=== PATIENT | female | born 1970 | race Caucasian/White ===

== ENCOUNTER 2016-07-15 08:46 | Day surgery (SDC) | payer OTHER ==
[2016-07-15] VITALS (13 sets, daily range): BP systolic 95–114; BP diastolic 47–72; PULSE 47–69; RESP 10–19; O2SAT 93–100
[~2016-07-15] VITALS: Ht 167.6 cm; Wt 75.0 kg
[~2016-07-15 08:46] MED LIST: BUPR100T7 PO; CeFAZolin Inj 2 GM in IV Premix 1 EACH IV ONE; ESTR0.5T PO; QUET50TA PO
[2016-07-15] MEDS ORDERED: HYDROmorphone 2 mg/mL Inj ONE (08:47)
[2016-07-15] MEDS ORDERED: Propofol 10,000 mCg/mL 20 mL Inj ONE (08:47)
[2016-07-15] MEDS ORDERED: fentaNYL-PF 50 mCg/mL 2 mL Inj ONE (08:47)
[2016-07-15] MEDS ORDERED: Ondansetron 2 mg/mL 2 mL Inj ONE (08:47)
[2016-07-15] MEDS ORDERED: Dexamethasone 4 mg/mL Inj ONE (08:47)
[2016-07-15] MEDS: Lactated Ringer's 1,000 ML IV SCH ×2 (08:56→09:30)
[2016-07-15] MEDS ORDERED: CeFAZolin Inj 2 gm / 50mL D5W IV ONE (09:02)
--- NOTE | 2016-07-15 09:02 | PCM.HPANE ---
Patient Data Date of Service: Jul 15, 2016 Surgeon Admitting Provider: Attending Provider:Gian Tran DO Primary Care Physician:Kathy Other Provider:Get Martinez Anesthesia Reason for Visit Left Acl Tear Ht/WT & BMI Height (Feet): 5 Height (Inches): 6 Weight (Kilograms): 75.9 Body Mass Index 26.00 Allergies Coded Allergies: Sulfa (Sulfonamide Antibiotics) (Unverified Allergy, Unknown, UNKNOWN, ) Past Anesthesia History Anesthesia History: Positive for:: Anesthesia Reactions (post op nausea vomiting, used scop patch in past ), Denies:: Abnormal Airway, Difficult Intubation, Fam Anesthesia Reaction, Malignant Hyperthermia Diabetes History Hx Diabetes?: No MRSA MRSA: No Medications Hypertension Medication: No Home Meds Incl Beta Dilan: No Reported Medications Bupropion ER (Wellbutrin SR)100 Mg Tablet.er100 Mg PO DAILY Ref 0 07/10/16 Quetiapine Fumarate (Seroquel)50 Mg [id number] Mg PO BID Ref 0 07/10/16 Estradiol 0.5 Mg Tablet0.5 Mg PO DAILY 07/10/16 Discontinued Reported Medications Quetiapine Fumarate (Seroquel)100 Mg [id number] Mg PO DAILY 30 Days Ref 0 10/04/13 Bupropion (Wellbutrin)100 Mg Icqeuw71 Mg PO BID 30 Days Ref 0 10/04/13 History History of ENT Problems?: Yes HEENT History: Positive for:: Sinus Problem (hx sinus surgery, hx sinus infections) Denies:: Abnormal Airway Cataracts Difficult Intubation Dysphagia Glaucoma Hearing Problem TMJ Denture Type: Partial- Upper Partial- Lower Hx of Heart Problems?: Yes Cardiovascular History: Denies:: AICD Abdominal Aortic Aneurism Atrial Fibrillation Cardiac Surgery Chest Pain Congestive Heart Failure Heart Murmur Hypertension Irregular Heartbeat Pacemaker Hx of Respiratory Problem?: No Respiratory History: Denies:: Asthma COPD Emphysema Oxygen Administration Pneumonia Tuberculosis Use of C-PAP Machine Hx Neurologic Problems?: No Neurological History: Denies:: CVA Headaches (only when has sinus infections) Multiple Sclerosis Parkinson's Disease Seizures Hx of GI Problems?: No Gastrointestinal History: Denies:: Gall Bladder Disease Gastroesphageal Reflux Hepatitis Liver Disease Hx of Problems?: No Genitourinary History: Denies:: Kidney Stones Urinary Tract Infection Female Hx: Positive for:: Endometriosis Denies:: Currently (hysterectomy) Problems with Breasts? Skin History: Denies:: History Skin Disorders? Pressure Ulcers Hx Musculoskeletal Problems?: Yes Musculoskeletal History: Positive for:: Musculoskeletal Trauma (left knee acl current admission problem) Osteoarthritis Denies:: Back Injury Fibromyalgia Joint Replacement Rheumatoid Arthritis Systemic Lupus Hx of Psycho/Social Problems?: Yes Psycho Social History: Positive for:: Anxiety (PTSD) Bipolar Disorder Hx Depression Hx Surgeries?: Yes (c section, rt elbow tendon repair, sinus, crystal/bs) Hx Any Other Health Problems?: Yes Other History: Denies:: Cancer Endocrine Disease Hospitalization Thyroid Disease History Blood Transfusions: Positive for:: Accept Blood Products? Denies:: Blood Transfusions Hx Diabetes: No Hx Alcohol Use: NoHx Substance Use: No Smoking Status: Smoker Current Status UNK Have You Smoked inLast 12 mo: No Stop/Bang Treated for Sleep Apnea?: No Do You Have a CPAP Machine?: No S-Snoring: Do You Snore Loudly: No T-Tired: feel tired, fatigued: No O-Obsered: Observed not breath: No P-Blood Pressure: treated: No B- Body Mass Index > 35 kg/m2: No A- Age over 50: No N- Neck Large Circumference: No G- Gender Male: No RHONA Total Score: 0 RHONA Risk Assessment: Low Risk, <3 Yes Risk Assessment Category Category 1A: Patient has history of documented sleep apnea, and HAS NOT received any narcotic, sedative or anesthesia administration during this stay. Category 1B: Patient has history of documented sleep apnea, and HAS received any narcotic , sedative or anesthesia administration during this stay Category 2: Patient has SUSPECTED Obstructive Sleep Apnea, and HAS received any narcotic , sedative or anesthesia administration during this stay. Category 3: Patient has SUSPECTED Obstructive Sleep Apnea and HAS NOT received narcotic, sedative or anesthesia administration during this stay. Category 4: Outpatient in Procedural Areas with known sleep apnea or who screen positive for High Risk via the STOP/BANG questionnaire. Exam Exam General Appearance: Alert, Oriented X3, Cooperative, No Acute Distress HEENT/AIRWAY: MP 2 Lungs: Clear to Auscultation, Normal Air Movement Heart: Exam Unremarkable, Normal S1, Normal S2, No Murmurs/Rubs/Gallops Meds/Labs/Diagnostics Admission Meds Current Medications Lactated Ringer's (Lr) 1,000 ml @ 120 mls/hr Q8H20M IV Last administered on t 08:56; Start 07/15/16 at 05:00; Stop 07/15/16 at 13:19 Plan Impression Patient chart reviewed, patient interviewed and anesthestic plan with risks, benefits, and alternatives discussed, and informed consent obtained. NPO Status: 07/14/16 ASA Physical Status: ASA2 Mod Systemic Disease Anesthetic Plan: GA (Patient acknowleges Hx PONV, declines PNB) Bene/Risks/Altern/Consents: Yes HP Complete Prior to Induction: Yes Gonzalez Velasco DO Jul 15, 2016 09:02
[2016-07-15] MEDS ORDERED: Lidocaine 1%-Epi 1:100,000 20 mL Inj INFILTRATE ONE (11:08)
[2016-07-15] MEDS ORDERED: Ropivacaine-PF 0.5% 30 mL Inj INFILTRATE ONE (11:25)
[2016-07-15] MEDS ORDERED: Lactated Ringer's 500 ML IV PRN (11:47)
[2016-07-15] MEDS ORDERED: Lactated Ringer's 1,000 ML IV SCH (11:47)
[2016-07-15] MEDS ORDERED: Phenylephrine 10,000 mCg/mL Inj IVPUSH PRN (11:50)
[2016-07-15] MEDS ORDERED: Ondansetron 2 mg/mL 2 mL Inj IVPUSH PRN (11:50)
[2016-07-15] MEDS ORDERED: Atropine 0.4 mg/mL Inj IVPUSH PRN (11:50)
[2016-07-15] MEDS ORDERED: HYDROmorphone 1 mg/mL Inj IVPUSH PRN (11:50)
[2016-07-15] MEDS ORDERED: MetoCLOpramide 5 mg/mL 2 mL Inj IVPUSH PRN (11:50)
[2016-07-15] MEDS ORDERED: Dexamethasone 4 mg/mL Inj IVPUSH PRN (11:50)
[2016-07-15] MEDS ORDERED: Labetalol 5 mg/mL 4 mL Inj IV PRN (11:50)
[2016-07-15] MEDS ORDERED: EPHEDrine Sulfate 50 mg/mL Inj IVPUSH PRN (11:50)
[2016-07-15] MEDS ORDERED: fentaNYL-PF 50 mCg/mL 2 mL Inj IVPUSH PRN (11:50)
[2016-07-15] MEDS ORDERED: hydrOXYzine Pamoate 25 mg Capsule PO PRN (12:25)
[2016-07-15] MEDS ORDERED: Acetaminophen IV 1,000 MG in IV Premix 1 EACH IV PRN (12:25)
[2016-07-15] MEDS ORDERED: HYDROcodone-APAP 7.5-325 mg Tablet PO PRN (12:25)
[2016-07-15] MEDS ORDERED: Lactated Ringer's 1,000 ML IV ONE (12:28)
--- NOTE | 2016-07-15 13:16 | OP ---
[address] [address] OPERATIVE REPORT PATIENT: OLIVIA HARMON : 1970 MR#: [id number] ADMIT: 07/15/2016 JOB ID: [id number] DATE OF SURGERY: 07/15/2016 PREOPERATIVE DIAGNOSIS(ES): Left knee anterior cruciate ligament tear. POSTOPERATIVE DIAGNOSIS(ES): Left knee anterior cruciate ligament tear with torn lateral meniscus. SURGEON: Gian Tran DO. ENERGY PROJECTS LEAD: PATRICIA Herrera DO. INDICATIONS: Patient is a 45-year-old female with left knee symptomatic instability after a fall about six months ago, off of her horse. We discussed treatment options and reviewed her MRI, and she wished to proceed with a left knee scope with ACL reconstruction. We discussed risks, benefits, and possible complications of surgery including, but not limited to injury to nerves and vessels, infection, bleeding, incomplete relief of symptoms, stiffness, need for additional procedures. All questions were answered and the patient wished to proceed. PROCEDURE IN DETAIL: The patient was brought to the operating room. She was given a preoperative antibiotic and general anesthetic. The left lower extremity was sterilely prepped and draped and an incision was made over the anteromedial and anterolateral joint line for scope portals. The scope was placed into the knee and inspection was undertaken. She was found to have a complete disruption of the ACL with no old femoral-sided attachment. The scope was removed and the tourniquet was inflated and further inspection was undertaken of the knee. She was found to have a small tear in the posterior horn lateral meniscus. This was resected back to a stable base with a shaver. Her articular cartilage was in good condition throughout the knee. Her medial meniscus was not torn and not damaged. Her anterior ACL remnant was resected with the shaver, and then using a Reece guide, a pin was placed for tibial tunnel. An incision was made about three fingerbreadths below the level of the joint line over the anteromedial tibial face and dissection was carried down onto the bone. The guidepin was advanced into the center of the old ACL remnant and then this was over-reamed with a size 9 reamer. Meanwhile, on the back table, Maximus Gudino was preparing the graft from the tissue bank and this measured 9 mm thickness graft. After the tibial tunnel was prepared and the soft tissue and bony debris was removed with the shaver the femoral side was prepared using a VAPR to remove all the soft tissue from the femoral attachment site. We then used the FlipCutter guide, measured a 20 mm thickness across the condyle, and elected to place the ACL at the previous anatomic ACL attachment site about 13 mm back from the front, leaving a 2 mm posterior wall. This was taken at the 1:30 position and a small incision was made. The FlipCutter was advanced into the femur and then flipped once it was entered in the joint and then pulled back for a 20 mm tunnel thickness. Next the graft was looped over the ACL TightRope and measured and marked, and the ACL TightRope was then passed using a retrieved suture. This was passed up from the tibial side, out the femoral side, and the button was then deployed and I placed back pressure against it insuring that the button was firmly seated, which it did have an excellent feel. The graft was then cinched up into the tunnel and knee was cycled 25 times and then secured with a titanium interference screw 30 mm in length. This had excellent fixation. The graft had excellent appearance and isometry and the knee was very stable after graft placement. The excess graft material was cut distally and the scope portals were closed with interrupted nylon suture. The tibial tunnel site was closed with 0 Vicryl to close the deep fascia and 2-0 to close the subcu. The skin was closed with subcuticular 4-0 Monocryl. Naropin was added as an adjunct local anesthetic. Sterile dressings were applied as well as a hinged knee brace, locked in full extension. The patient tolerated the procedure well. Blood loss was minimal. service center assistant was required for the successful completion of this procedure. POSTOPERATIVE PROTOCOL: Will have the patient use her hinged knee brace locked in full extension until she is able to straight- leg raise. Would like her to work on range of motion, 0-90 degrees for the 1st six weeks. I would like her to use crutches for the first two weeks postoperatively. She may weightbear to tolerance and follow up with [facility] in two weeks and with myself in six weeks postoperatively. She was given a prescription for Starke 7.5/325 for pain.
--- NOTE | 2016-07-15 13:28 | PCM.ANEP1 ---
Post Anesthesia Phase 1 PACU Phase 1 Assessment Date of Service: Jul 15, 2016 Vital Signs Vital Signs Date Time Temp Pulse Resp B/P Pulse Ox O2 Delivery O2 Flow Rate FiO2 07/15/16 13:25 56 19 103/71 98 Room Air 07/15/16 13:15 59 11 111/67 95 Room Air 07/15/16 13:05 36.2 57 16 107/72 95 Room Air 07/15/16 12:55 60 11 109/71 96 Room Air 07/15/16 12:50 60 11 95/69 100 Room Air 07/15/16 12:45 55 15 101/69 100 Room Air 07/15/16 12:40 64 14 101/67 99 Simple Mask 8 07/15/16 12:35 65 15 100/60 100 Simple Mask 8 07/15/16 12:32 36.7 65 10 114/47 99 Simple Mask 8 07/15/16 09:16 36.5 56 15 104/69 100 Room Air Anesthetic Administered: GA Level of Alertness: Sleepy, easy to arouse PEREZ's with Equal Strength: Yes Pain: No Nausea or Vomiting: No Airway Device: LMA Oxygen Delivery: Simple Mask (6l) Lungs: Clear to Auscultation, Normal Air Movement Dermatome Level: Full Sensation Gonzalez Velasco DO Jul 15, 2016 13:28
--- NOTE | 2016-07-15 15:44 | PCM.ANEP2 ---
Post Anesthesia Evaluation ASA/CMS Post Anesthesia Date of Service: Jul 15, 2016 VS in Patient's Normal Range?: Yes Resp Stable; Airway Patent?: Yes CV Function & Hydration Stable: Yes Mental Status Recovered?: Yes Pain control Satisfactory?: Yes N/V Control Satisfactory?: No (Pt prefers D/C, states PONV common for her following surgery) Gonzalez Velasco DO Jul 15, 2016 15:44
== END 2016-07-15 23:59 | disposition home or self-care (01) ==
LOC: SAS 08:46
PROVIDERS: ATTEND Orthopaedic Surgery
DX: S83.512A Sprain of anterior cruciate ligament of left knee, initial encounter (principal); S83.282A Other tear of lateral meniscus, current injury, left knee, initial encounter; F43.10 Post-traumatic stress disorder, unspecified; F31.9 Bipolar disorder, unspecified; F17.210 Nicotine dependence, cigarettes, uncomplicated; V80.010A Animal-rider injured by fall from or being thrown from horse in noncollision accident, initial encounter; Y93.52 Activity, horseback riding; Y92.9 Unspecified place or not applicable; Y99.8 Other external cause status; Z79.890 Hormone replacement therapy
CPT/HCPCS: 29881; 29888; 97116; C1713; C1762; J0690; J1100; J1170; J2250; J2405; J2765; J2795; J3010; J7120